=== PATIENT | male | born 1990 | race Caucasian/White ===

== ENCOUNTER → 2020-09-14 07:53 | Outpatient (CLI) | payer OTHER, MEDICAID, SELFPAY ==
[2020-09-14] MEDS: COVID-19 VACC #1, MRNA(MOD) 100 MCG/0.5 ML VIAL IM (08:12)
== END ==
PROVIDERS: PCP Family Medicine; Visit Provider Internal Medicine
DX: Z23 Encounter for immunization (principal)
CPT/HCPCS: 0011A; 91301

== ENCOUNTER → 2020-10-13 15:53 | Outpatient (CLI) | payer OTHER, MEDICAID, SELFPAY ==
[2020-10-13] MEDS: COVID-19 VACC #2, MRNA(MOD) 100 MCG/0.5 ML VIAL IM (15:56)
== END ==
PROVIDERS: PCP Family Medicine; Visit Provider Internal Medicine
DX: Z23 Encounter for immunization (principal)
CPT/HCPCS: 0012A; 91301

== ENCOUNTER → 2020-11-24 16:43 | Outpatient (CLI) | payer OTHER, MEDICAID, SELFPAY ==
--- NOTE | 2020-11-24 16:45 | DI.RAD.S_ITS ---
PROCEDURE: XR CHEST 2V INDICATIONS: possible thoracic outlet syndrome TECHNIQUE: 2 views of the chest were acquired. COMPARISON: None. FINDINGS: Surgical changes and devices: None. Lungs and pleura: Lungs are clear. No pleural effusions or pneumothorax. Mediastinum: Mediastinal contours are normal. Heart size is normal. Bones and chest wall: No suspicious bony abnormalities. Soft tissues appear unremarkable. IMPRESSION: Normal for age, source of current possible thoracic outlet syndrome symptoms is not seen. Dictated by: Tobin Elmore M.D. on 11/24/2020 at 17:10 Approved by: Tobin Elmore M.D. on 11/24/2020 at 17:10
--- NOTE | 2020-11-24 16:45 | DI.RAD.S_ITS ---
PROCEDURE: XR CERVICAL SPINE 2V OR 3V INDICATIONS: bilateral hand numbness/tingling TECHNIQUE: 3 view(s) of the cervical spine were acquired. COMPARISON: None. FINDINGS: Bones: No fractures or dislocations to the T1 level. The lateral masses of C1 appear intact on the odontoid view. No suspicious bony lesions. Soft tissues: No prevertebral soft tissue swelling. IMPRESSION: Normal for age, source of current numbness and tingling symptoms is not seen. Dictated by: Tobin Elmroe M.D. on 11/24/2020 at 17:10 Approved by: Tobin Elmore M.D. on 11/24/2020 at 17:11
== END ==
PROVIDERS: PCP Family Medicine; Referring Provider Family Medicine; Visit Provider Family Medicine
DX: R20.0 Anesthesia of skin (principal); R20.2 Paresthesia of skin
CPT/HCPCS: 71046; 72040

== ENCOUNTER → 2021-03-14 16:21 | Outpatient (CLI) | payer OTHER, MEDICAID, SELFPAY ==
[2021-03-14 16:50] LABS: Semen Sperm Prescence Post-Vas Absent (ABSENT)
== END ==
PROVIDERS: PCP Family Medicine; Referring Provider Family Medicine; Visit Provider Family Medicine
DX: Z30.2 Encounter for sterilization (principal)
CPT/HCPCS: 89321

== ENCOUNTER → 2024-09-17 10:23 | Outpatient (CLI) | payer OTHER, SELFPAY ==
[2024-09-17 11:24] LABS: COVID-19 CEPHEID 4-PLEX PCR Negative (Negative); Influenza A - CEPHEID Flu A NEGATIVE (NEGATIVE); Influenza B - CEPHEID Flu B NEGATIVE (NEGATIVE); Respiratory Syncytial Virus Negative (Negative)
== END ==
PROVIDERS: PCP Family Medicine; Visit Provider Student in an Organized Health Care Education/Training Program
DX: R05.1 Acute cough (principal)
CPT/HCPCS: 0241U